=== PATIENT | female | born 1975 | race Caucasian/White ===

== ENCOUNTER 2022-02-08 12:10 | Emergency (ER) | payer OTHER, SELFPAY ==
[2022-02-08] VITALS (14 sets, daily range): BP systolic 95–136; BP diastolic 58–78; PULSE 75; RESP 20; TEMP 36.6; O2SAT 83–100
--- NOTE | ~2022-02-08 | CT_ITS ---
EXAMINATION: CT abdomen pelvis w con DATE: 02/08/2022 14:56 INDICATION: Low back pain. TECHNIQUE: Computed tomography (CT) of the abdomen and pelvis was performed with 100 mL Omnipaque-300 intravenous contrast. Automated exposure control and iterative reconstruction technique were employe d. The dose-length product was 220.34 mGy-cm. COMPARISON: None FINDINGS: Minimal dependent atelectasis in the bilateral lower lobes. Heart size is normal. No pericardial or p leural effusion. Bilateral breast implants. Mild intra and extra hepatic biliary ductal dilation whic h is likely related to prior cholecystectomy with surgical clips at the gallbladder fossa. Spleen, pa ncreas, gallbladder and bilateral adrenal glands are normal. Bilateral kidneys are normal with normal symmetric parenchymal enhancement and no evident urolithiasis or hydronephrosis. Bladder is decompre ssed which limits evaluation. The uterus is not identified and has likely been surgically resected. M ild diverticulosis along the sigmoid colon without adjacent from 3 stranding to suggest diverticular colitis. Small bowel and appendix are normal. 1.5 cm peripherally enhancing right corpus luteum cyst. Left ovary is unremarkable. There is however increased prominence of the left gonadal vein which can be seen with pelvic gastric congestion syndrome. No free intraperitoneal gas or fluid. No pathologic ally enlarged abdominal or pelvic lymphadenopathy. Mild thoracolumbar levocurvature. IMPRESSION: 1. 1.5 cm peripherally enhancing right ovarian corpus luteum cyst. No other acute intra-abdominal/pel adelaida process. 2. Normal kidneys and ureters with no urolithiasis or hydronephrosis. 3. Mild diverticulosis. 4. Increased prominence of the left gonadal vein which can be seen with pelvic vascular congestion sy ndrome. Reviewed, dictated and finalized at location B. IMPRESSION: 1. 1.5 cm peripherally enhancing right ovarian corpus luteum cyst. No other acu te intra-abdominal/pelvic process. 2. Normal kidneys and ureters with no urolithiasis or hydronephrosis. 3. Mild diverticulosis. 4. Increased prominence of the left gonadal vein which can be seen with pelvic vascular congestion syndrome.
--- NOTE | 2022-02-08 12:20 | PC.NURSE ---
C/O LOW BACK PAIN THAT STARTED TODAY. PT REPORTS SHE WOKE UP WITH PAIN TODAY. REPORTS SHE TOOK 2 ALEVE, TRAMADOL AND MUSCLE RELAXER GIVEN TO HER BY HER SISTER. PAIN IS CONSTANT BUT WORSE WITH MOVEMENT. DENIES ANY URINARY COMPLAINTS AND DESCRIBES PAIN LIKE LABOR IN YOUR BACK.
--- NOTE | 2022-02-08 13:31 | ED.BACK ---
HPI - Back Pain/Injury General Chief Complaint: Back Pain/Injury Stated Complaint: back pain Time Seen by Provider: 02/08/22 12:47 History of Present Illness HPI Narrative: This is a 46F with past medical history of , hysterectomy who presents to the emergency department complaining of back pain, 7/10 does not radiate, beginning while lying down at 02:30 this morning. Her pain is aggravated by lying on her right side and movement of legs. She took Ibuprofen and a muscle relaxant this morning without improvement. She denies fevers/chills/loss of bowel or bladder control/weakness/vaginal bleeding/hematuria or recent trauma. Related Data Allergies Allergy/AdvReac Type Severity Reaction Status Date / Time No Known Allergies Allergy Unverified 03/05/11 14:49 Review of Systems Review of Systems: CONSTITUTIONAL: Denies fever, chills, or sweats. EYES: Denies visual changes, redness, or discharge. ENT: Denies rhinorrhea, congestion, sore throat, or otalgia. CARDIOVASCULAR: Denies chest pain, palpitations, or edema. RESPIRATORY: Denies cough or dyspnea. GASTROINTESTINAL: Denies abdominal pain, nausea, vomiting, or diarrhea. GENITOURINARY: Denies dysuria or hematuria. SKIN: Denies rash or itching. MUSCULOSKELETAL: +back pain, Denies joint pain, or myalgia. NEUROLOGIC: Denies headache, numbness, dizziness, or weakness. PSYCHIATRIC: Denies anxiety or depression. [facility] Surgical History Surgical History (Updated 02/08/22 @ 22:03 by Krunal Patten MD) H/O: hysterectomy Comments History of c-scetion and tubal ligation and hysterectomy, cholecystectomy Exam Narrative: GENERAL: Well-nourished, and in moderate distress due to pain HEAD: Normocephalic, atraumatic. EYES: PERRLA and EOMI. ENT: Nares clear, no rhinorrhea or epistaxis. Mucous membranes moist. Oropharynx without tonsillar hypertrophy exudate or other lesions. Bilateral TMs pearly babcock nonbulging NECK: Supple. No adenopathy or masses. No carotid bruits or JVD CHEST: Clear to auscultation. No respiratory distress. No wheezes rales or rhonchi HEART: Regular rate and rhythm. No murmur heard. Normal peripheral pulses. ABDOMEN: Soft, Mild tenderness to palpation in the righ upper quadrant w/o rebound or guarding, nondistended, normal active bowel sounds. Tender in the right CVA, BACK: No midline step-off, crepitus or pain EXTREMITIES: Normal range of motion. No edema. SKIN: Warm, dry, no rash. NEURO: No focal deficits. Alert and oriented x3. PSYCH: Normal mood and affect. Course Course Emergency Course: 14:25 - Reassessed. Pain somewhat improved. Chemistries show minimally decreased sodium with normal kidney function. CBC unremarkable. UA pending. 16:05 - Hematuria noted on UA (patient is status post hysterecomy). CT not concerning for intra-abdominal infectious process. CT does not definitively show kidney stone, however suspect this is the cause of the patient's pain. Reassessed patient, she says her pain is improved to a 4 of 10. She is comfortable with discharge home. Discussed return and emergency precautions including signs/syptoms of intractable vomiting and acute abdomen. The patient voiced understanding and agreement. Vital Signs Vital signs: Vital Signs Temperature 97.8 F 02/08/22 12:11 Pulse Rate 75 02/08/22 12:11 Respiratory Rate 20 02/08/22 12:11 Blood Pressure 102/61 02/08/22 12:11 Pulse Oximetry 100 02/08/22 12:11 Temperature 97.8 F 02/08/22 12:11 Pulse Rate 75 02/08/22 12:11 Respiratory Rate 20 02/08/22 12:11 Blood Pressure 95/67 L 02/08/22 13:17 Pulse Oximetry 100 02/08/22 13:45 MDM - Back Pain/Injury MDM Narrative Medical decision making narrative: Clinincal diagnosis: Back pain Differential diagnosis: Pyelonephritis, Kidney stone, Pancreatitis, Diverticulitis, Metabolic abnormality, Other Plan: Labs imaging, pain control, reassess Differential Diagnosis Differential diagnosis: Likely strain of
[2022-02-08] MEDS: KETOROLAC 30 MG/ML VIAL (*BKC) IV PUSH (13:33)
--- NOTE | 2022-02-08 13:33 | PC.NURSE ---
pt states is unable to void. aware that ct cannot be completed until ua specimen received.
[2022-02-08 13:48] LABS: Basophils Percent Auto 0.4 % (0.2-1.2); Eosinophils Absolute Auto 0.2 K/mm3 (0-0.3); Eosinophils Percent Auto 3.2 % (0-4.4); Hematocrit 40.4 % (37.0-47.0); Hemoglobin 13.2 g/dL (12.0-15.0); Immature Granulocyte Absolute 0.01 K/mm3 (0.00-0.031); Immature Granulocyte Percent A 0.1 % (0-0.5); Lymphocytes Absolute Auto 1.85 K/mm3 (0.9-3.2); Lymphocytes Percent Auto 26.6 % (18.3-44.2); Mean Corpuscular HGB Conc 32.7 g/dl (32-36); Mean Corpuscular Hemoglobin 29.7 pg (26-34); Mean Platelet Volume 8.6 fl (7.4-10.4); Monocytes Absolute Auto 0.4 K/mm3 (0.1-0.6); Monocytes Percent Auto 6.3 % (2.6-8.5); Neutrophils Absolute Auto 4.4 K/mm3 (1.3-6.7); Neutrophils Percent Auto 63.4 % (45.5-73.1); Platelet Count Result 292 k/mm3 (150-375); Red Blood Count 4.44 M/mm3 (4.2-5.4); Red Cell Distribution Width 12.1 % (11.5-14.5)
[2022-02-08 13:57] LABS: Alanine Aminotransferase 20 U/L (6-35); Albumin Level 3.8 g/dL (3.5-5.1); Alkaline Phosphatase 98 U/L (38-126); Anion Gap 4 mmol/L (8-16); Aspartate Amino Transferase 27 U/L (14-36); Bilirubin,Total 0.5 mg/dL (0.2-1.3); Blood Urea Nitrogen 12 mg/dL (7-17); Calcium 8.4 mg/dL (8.4-10.2); Carbon Dioxide 26 mmol/L (22-30); Chloride 104 mmol/L (98-107); Estimated CRCL calculation 76 ml/min; Estimated Glomerular Filt Rate > 60; Glucose 91 mg/dL (65-110); Lipase 59 U/L (23-300); Sodium 134 mmol/L (137-145)
[2022-02-08 14:54] LABS: Appearance Urine Clear (Clear); Bilirubin Urine 1+ (Negative); Blood Urine Negative (Negative); Color Urine Yellow (Yellow); Glucose Urine UA Negative (Negative); Ketones Urine Trace mg/dL (Negative); Leukocyte Esterase Ur Negative LEU/UL (Negative); Nitrate Urine Negative (Negative); Protein Urine 2+ mg/dL (Negative); Specific Grav Ur >= 1.030 (1.001-1.035)
[2022-02-08 14:58] LABS: Bacteria Urine 1+ /hpf; Mucus Urine Heavy /lpf; Squamous Epithelial Cell Urine Many /hpf (Few)
[2022-02-08 14:59] LABS: Add Urine Microscopic? YES
== END 2022-02-08 16:26 | disposition home or self-care (01) ==
PROVIDERS: Emergency Provider Preventive Medicine Aerospace Medicine
DX: N20.0 Calculus of kidney (principal); Z90.710 Acquired absence of both cervix and uterus; N83.11 Corpus luteum cyst of right ovary; K57.90 Diverticulosis of intestine, part unspecified, without perforation or abscess without bleeding; R93.5 Abnormal findings on diagnostic imaging of other abdominal regions, including retroperitoneum
CPT/HCPCS: 36415; 74177; 80053; 81001; 81025; 83690; 85025; 87086; 96374; 99284; J1885; Q9967